=== PATIENT | female | born 1985 | race Two or more races ===

== ENCOUNTER 2020-03-05 14:26 | Emergency (ER) | payer SELFPAY ==
[~2020-03-05] VITALS: Ht 152.4 cm; Wt 61.8 kg
[2020-03-05 14:45] VITALS: BP 127/98; Ht 152.4 cm; Wt 61.8 kg
[2020-03-05] MEDS ORDERED: BACLOFEN20 M1 PO (14:58)
[2020-03-05] MEDS ORDERED: IBUPROFEN800 MG PO (14:58)
== END 2020-03-05 15:28 | disposition home or self-care (01) ==
LOC: D.ER 14:26
DX: M54.5 Low back pain (principal); M62.838 Other muscle spasm; J45.909 Unspecified asthma, uncomplicated; M25.552 Pain in left hip